=== PATIENT | female | born 1950 ===

== ENCOUNTER 2025-06-08 10:34 | Outpatient (AMB) | payer MEDICARE, SELFPAY | END 2025-06-08 10:41 | disposition home or self-care (01) | LOC: HO.HMGAL 10:34 | PROVIDERS: PCP Internal Medicine; Visit Provider Registered Nurse Emergency | DX: J30.89 Other allergic rhinitis (principal) | CPT/HCPCS: 95117; 95165 ==

== ENCOUNTER 2025-08-17 09:57 | Outpatient (AMB) | payer MEDICARE, SELFPAY | END 2025-08-17 09:58 | disposition home or self-care (01) | LOC: HO.HMGAL 09:57 | PROVIDERS: PCP Nurse Practitioner Family; Visit Provider Registered Nurse Emergency | DX: J30.89 Other allergic rhinitis (principal) | CPT/HCPCS: 95117; 95165 ==

== ENCOUNTER 2025-09-28 10:36 | Outpatient (AMB) | payer MEDICARE, SELFPAY | END 2025-09-28 10:36 | disposition home or self-care (01) | LOC: HO.HMGAL 10:36 | PROVIDERS: PCP Nurse Practitioner Family; Visit Provider Registered Nurse Emergency | DX: J30.89 Other allergic rhinitis (principal) | CPT/HCPCS: 95117; 95165 ==